=== PATIENT | male | born 2000 | race Caucasian/White ===

== ENCOUNTER → 2020-05-06 | Outpatient (CLI) | payer OTHER ==
[~2020-05-06] MED LIST: ALLEGRA ALLERG180 MG PO; GUANFACINE HCL1 MG PO; LUVOX 50MG TABL50 M1 PO; METHYLPHENIDATE10 MG PO; NORCO 5-325 TA1 EACH PO; SERTRALINE HCL100 MG PO; STRATTERA60 MG PO; ZOFRAN ODT4 MG PO
[2020-05-06 13:00] LABS: BASOPHILS 0.4 % (0.0-2.0); EOSINOPHILS 1.8 % (0.0-3.0); HEMATOCRIT 42.3 % (42.0-52.0); HEMOGLOBIN 14.3 gm/dL (14.0-18.0); LYMPHOCYTES 25.2 % (24.0-44.0); MCH 30.9 pg (26.0-34.0); MCHC 33.9 g/dL (28.0-37.0); MONOCYTES 8.2 % (1.0-8.0); PLATELET COUNT 259 thou/uL (150-400); POLYS 64.4 % (36.0-66.0); RBC 4.65 mil/uL (4.50-6.00); RDW 13.7 % (10.5-14.5); WBC 4.6 thou/uL (4.0-11.0)
[2020-05-06 13:14] LABS: ALBUMIN 4.3 g/dL (3.4-5.0); CHOLESTEROL 131 mg/dL (<170); DIRECT BILIRUBIN < 0.1 mg/dL (<0.1-0.2); HDL CHOLESTEROL 42 mg/dL (>40); LDL CHOLESTEROL 64 mg/dL (<110); SGOT 64 U/L (15-37); SGPT 48 U/L (30-65); TC:HDL 3.1 Ratio (Not establshd); TOTAL BILIRUBIN 0.4 mg/dL (0.2-1.0); TOTAL PROTEIN 7.6 g/dL (6.4-8.2); TRIGLYCERIDE 125 mg/dL (<150); VLDL 25 mg/dL (<40)
== END ==
LOC: LAB 12:05
PROVIDERS: ATTEND Specialist
DX: L70.0 Acne vulgaris (principal); Z79.899 Other long term (current) drug therapy